=== PATIENT | female | born 1950 | race Caucasian/White ===

== ENCOUNTER 2020-12-22 07:58 | Outpatient (CLI) | payer MEDICARE, OTHER | END 2020-12-22 07:59 | disposition home or self-care (01) | LOC: CSHMAMMO 07:58 | PROVIDERS: ATTEND Family Medicine | DX: Z12.31 Encounter for screening mammogram for malignant neoplasm of breast (principal); Z13.820 Encounter for screening for osteoporosis; N95.1 Menopausal and female climacteric states | CPT/HCPCS: 77063; 77067; 77080 ==

== ENCOUNTER 2021-08-09 14:54 | Emergency (ER) | payer MEDICARE, OTHER ==
[2021-08-09] MEDS ORDERED: Acetaminophen 325 MG TAB ONE (15:29)
[2021-08-09] MEDS ORDERED: Boostrix 0.5 ML (Tdap) VIAL ONE (15:30)
== END 2021-08-09 16:56 | disposition home or self-care (01) ==
LOC: CSHERS 14:54
DX: S51.011A Laceration without foreign body of right elbow, initial encounter (principal); I10 Essential (primary) hypertension; Z23 Encounter for immunization; W19.XXXA Unspecified fall, initial encounter
CPT/HCPCS: 12002; 90471; 90715

== ENCOUNTER 2022-01-11 08:07 | Outpatient (CLI) | payer MEDICARE, OTHER | END 2022-01-11 08:08 | disposition home or self-care (01) | LOC: CSHMAMMO 08:07 | PROVIDERS: ATTEND Family Medicine | DX: Z12.31 Encounter for screening mammogram for malignant neoplasm of breast (principal) | CPT/HCPCS: 77063; 77067 ==

== ENCOUNTER 2023-03-18 00:09 | Emergency (ER) | payer MEDICARE, OTHER ==
[2023-03-18] MEDS ORDERED: Cyclobenzaprine 10 MG TAB ONE (00:56)
[2023-03-18] MEDS ORDERED: Ketorolac Tromethamine 30 MG/ML VIAL ONE (00:56)
[2023-03-18] MEDS ORDERED: Lidocaine 4% Patch TD SCH (01:00)
[2023-03-18] MEDS ORDERED: HYDROcodone/Acetaminophen 5/325 mg Tablet ONE (01:58)
== END 2023-03-18 03:10 | disposition home or self-care (01) ==
LOC: CSHERS 00:09
DX: M54.50 Low back pain, unspecified (principal); E11.9 Type 2 diabetes mellitus without complications; E78.5 Hyperlipidemia, unspecified; I10 Essential (primary) hypertension; Z79.84 Long term (current) use of oral hypoglycemic drugs; Z79.899 Other long term (current) drug therapy
CPT/HCPCS: 96372; 99283; J1885

== ENCOUNTER 2023-03-26 09:45 | Inpatient (IN) | payer MEDICARE, OTHER ==
[2023-03-26] MEDS ORDERED: Iopamidol 370 76% 100 ML VIAL ONE (10:20)
[2023-03-26] MEDS ORDERED: Ketorolac Tromethamine 30 MG/ML VIAL ONE (10:39)
[2023-03-26 10:59] LABS: #Eosinphils 0.1 10x3/uL (0.0-0.5); #Monocytes 0.7 10x3/uL (0.0-1.1); #Neutrophils 5.8 10x3/uL (1.5-8.4); %Basophils 0.6 % (0.0-2.0); %Eosinophils 0.7 % (0.0-6.0); %Lymphocytes 7.8 % (18.0-47.0); %Monocytes 9.5 % (0.0-10.0); Hematocrit 35.5 % (34.9-44.5); Hemoglobin 12.3 g/dL (12.0-15.5); Mean Corpuscular HGB CONC 34.6 g/dL (32.0-36.0); Mean Corpuscular Hemoglobin 31.8 pg (27.0-33.0); Mean Corpuscular Volume 91.7 fl (81.6-98.3); Mean Platelet Volume 8.9 fl (7.4-10.4); Platelet Count 147 10x3/uL (150-450); RBC Distribution Width 14.4 % (11.5-14.5); Red Blood Cell (RBC) Count 3.87 10x6/uL (3.90-5.03); White Blood Cell (WBC) Count 7.2 10x3/uL (3.5-10.5)
[2023-03-26 11:12] LABS: ALT (SGPT) 46 U/L (8-55); AST (SGOT) 41 U/L (5-34); Albumin 4.1 g/dL (3.4-4.8); Alkaline Phosphatase 80 U/L (40-110); Anion Gap 16 mmol/L (10-20); BUN (Urea Nitrogen) 9 mg/dL (9.8-20.1); Bilirubin, Total 1.1 mg/dL (0.2-1.2); Calc. Creatinine Clearance 0 mL/min (70-130); Calcium 9.2 mg/dL (7.8-10.44); Carbon Dioxide 22 mmol/L (23-31); Chloride 97 mmol/L (98-107); Estimated GFR 87; Globulin 3.3 g/dL (2.4-3.5); Glucose 138 mg/dL (83-110); Potassium 4.6 mmol/L (3.5-5.1); Protein, Total 7.4 g/dL (5.8-8.1); Sodium 130 mmol/L (136-145)
[2023-03-26 12:32] LABS: Troponin I Less than 0.010 ng/mL (< 0.028)
[2023-03-26] MEDS ORDERED: Morphine 4 MG/ML VIAL ONE (14:29)
[2023-03-26] MEDS ORDERED: Ondansetron ODT 4 MG TAB PO PRN (14:34)
[2023-03-26] MEDS ORDERED: Acetaminophen 325 MG TAB PO PRN (14:34)
[2023-03-26] MEDS ORDERED: Ondansetron PF 4 MG/2 ML Vial IVP PRN (14:34)
[2023-03-26 17:23] VITALS: BMI 32.9
[2023-03-26] MEDS: HYDROcodone/Acetaminophen 5/325 mg Tablet PO PRN (18:09)
[2023-03-26] MEDS ORDERED: metFORMIN 500 MG TAB PO SCH (21:00)
[2023-03-26] MEDS: Morphine 4 MG/ML VIAL SLOW IVP PRN (21:55)
[2023-03-26] MEDS: metFORMIN 500 MG TAB PO SCH (21:57)
[2023-03-26] MEDS: Montelukast Sodium 10 mg Tablet PO SCH (21:58)
[2023-03-26] MEDS: Atorvastatin Calcium 40 MG TAB PO SCH (21:58)
[2023-03-26] MEDS: Senokot S 8.6-50 MG TAB PO SCH (22:02)
[2023-03-27] MEDS: Morphine 4 MG/ML VIAL SLOW IVP PRN ×3 (02:28→20:46)
[2023-03-27 05:44] LABS: #Eosinphils 0.1 10x3/uL (0.0-0.5); #Monocytes 0.8 10x3/uL (0.0-1.1); #Neutrophils 4.7 10x3/uL (1.5-8.4); %Basophils 0.5 % (0.0-2.0); %Eosinophils 1.4 % (0.0-6.0); %Lymphocytes 14.2 % (18.0-47.0); %Monocytes 12.3 % (0.0-10.0); %Neutrophils 71.1 % (40.0-75.0); Hematocrit 33.9 % (34.9-44.5); Hemoglobin 11.6 g/dL (12.0-15.5); Mean Corpuscular HGB CONC 34.2 g/dL (32.0-36.0); Mean Corpuscular Hemoglobin 31.7 pg (27.0-33.0); Mean Corpuscular Volume 92.6 fl (81.6-98.3); Platelet Count 143 10x3/uL (150-450); RBC Distribution Width 14.4 % (11.5-14.5); Red Blood Cell (RBC) Count 3.66 10x6/uL (3.90-5.03); White Blood Cell (WBC) Count 6.6 10x3/uL (3.5-10.5)
[2023-03-27 06:01] LABS: ALT (SGPT) 41 U/L (8-55); AST (SGOT) 47 U/L (5-34); Albumin 3.6 g/dL (3.4-4.8); Alkaline Phosphatase 68 U/L (40-110); Anion Gap 14 mmol/L (10-20); BUN (Urea Nitrogen) 9 mg/dL (9.8-20.1); Bilirubin, Total 0.9 mg/dL (0.2-1.2); Calc. Creatinine Clearance 97 mL/min (70-130); Calcium 8.9 mg/dL (7.8-10.44); Carbon Dioxide 19 mmol/L (23-31); Chloride 99 mmol/L (98-107); Estimated GFR 92; Globulin 3.1 g/dL (2.4-3.5); Glucose 117 mg/dL (83-110); Potassium 4.9 mmol/L (3.5-5.1); Protein, Total 6.7 g/dL (5.8-8.1); Sodium 127 mmol/L (136-145)
[2023-03-27] MEDS ORDERED: metFORMIN 500 MG TAB PO SCH (08:00)
[2023-03-27] MEDS: Senokot S 8.6-50 MG TAB PO SCH ×2 (08:24→20:45)
[2023-03-27] MEDS: Losartan 50 MG TAB PO SCH (08:24)
[2023-03-27] MEDS: HYDROcodone/Acetaminophen 5/325 mg Tablet PO PRN ×3 (08:25→21:00)
[2023-03-27] MEDS ORDERED: Atorvastatin Calcium 40 MG TAB PO SCH (09:00)
[2023-03-27] MEDS ORDERED: Montelukast Sodium 10 mg Tablet PO SCH (09:00)
[2023-03-27] MEDS: metFORMIN 500 MG TAB PO SCH (16:51)
[2023-03-27] MEDS: Atorvastatin Calcium 40 MG TAB PO SCH (20:45)
[2023-03-27] MEDS: Montelukast Sodium 10 mg Tablet PO SCH (20:45)
[2023-03-28] MEDS: Morphine 4 MG/ML VIAL SLOW IVP PRN ×2 (01:20→08:38)
[2023-03-28] MEDS: HYDROcodone/Acetaminophen 5/325 mg Tablet PO PRN ×2 (03:09→11:57)
[2023-03-28 04:32] LABS: #Eosinphils 0.1 10x3/uL (0.0-0.5); #Monocytes 0.5 10x3/uL (0.0-1.1); #Neutrophils 3.6 10x3/uL (1.5-8.4); %Basophils 0.6 % (0.0-2.0); %Lymphocytes 15.8 % (18.0-47.0); %Monocytes 9.5 % (0.0-10.0); %Neutrophils 71.7 % (40.0-75.0); Hematocrit 31.1 % (34.9-44.5); Hemoglobin 10.8 g/dL (12.0-15.5); Mean Corpuscular HGB CONC 34.7 g/dL (32.0-36.0); Mean Corpuscular Hemoglobin 31.6 pg (27.0-33.0); Mean Corpuscular Volume 90.9 fl (81.6-98.3); Mean Platelet Volume 8.9 fl (7.4-10.4); Platelet Count 131 10x3/uL (150-450); RBC Distribution Width 14.4 % (11.5-14.5); Red Blood Cell (RBC) Count 3.42 10x6/uL (3.90-5.03)
[2023-03-28 04:36] LABS: ALT (SGPT) 34 U/L (8-55); AST (SGOT) 29 U/L (5-34); Albumin 3.4 g/dL (3.4-4.8); Alkaline Phosphatase 64 U/L (40-110); Anion Gap 13 mmol/L (10-20); BUN (Urea Nitrogen) 10 mg/dL (9.8-20.1); Bilirubin, Total 0.9 mg/dL (0.2-1.2); Calc. Creatinine Clearance 103 mL/min (70-130); Calcium 8.9 mg/dL (7.8-10.44); Carbon Dioxide 21 mmol/L (23-31); Chloride 100 mmol/L (98-107); Estimated GFR 93; Globulin 2.7 g/dL (2.4-3.5); Glucose 129 mg/dL (83-110); Potassium 4.3 mmol/L (3.5-5.1); Protein, Total 6.1 g/dL (5.8-8.1); Sodium 130 mmol/L (136-145)
[2023-03-28] MEDS: Senokot S 8.6-50 MG TAB PO SCH (08:38)
[2023-03-28] MEDS: Losartan 50 MG TAB PO SCH (08:38)
[2023-03-28] MEDS: metFORMIN 500 MG TAB PO SCH (08:38)
[2023-03-28 12:30] VITALS: TEMP 98.9
[2023-03-28 12:52] VITALS: BP 151/86
== END 2023-03-28 13:38 | disposition home or self-care (01) | DRG 206 ==
LOC: SUATTDRO 09:45 → CSHERS 09:45 → CSHTELE 13:41
PROVIDERS: ADMIT Internal Medicine; ATTEND Internal Medicine
DX: Q79.1 Other congenital malformations of diaphragm (principal); E87.1 Hypo-osmolality and hyponatremia; J98.11 Atelectasis; E66.9 Obesity, unspecified; K80.20 Calculus of gallbladder without cholecystitis without obstruction; D69.6 Thrombocytopenia, unspecified; E11.65 Type 2 diabetes mellitus with hyperglycemia; I10 Essential (primary) hypertension; J45.909 Unspecified asthma, uncomplicated; E78.5 Hyperlipidemia, unspecified; Z68.32 Body mass index [BMI] 32.0-32.9, adult; Z98.890 Other specified postprocedural states; Z79.84 Long term (current) use of oral hypoglycemic drugs; Z79.899 Other long term (current) drug therapy
CPT/HCPCS: 36415; 36416; 71045; 71275; 80053; 83930; 84300; 84484; 85025; 85379; 96372; 96374; J1650; J1885; J2270; Q9967